=== PATIENT | male | born 1965 | race Caucasian/White ===

== ENCOUNTER 2016-05-09 09:37 | Emergency (ER) | payer BC, OTHER ==
[2016-05-09 09:50] VITALS: TEMP 97.8
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
--- NOTE | 2016-05-09 11:26 | XR ---
EXAMINATION TYPE: XR shoulder complete RT DATE OF EXAM: 05/09/2016 11:13 AM CLINICAL HISTORY: pain COMPARISON: NONE TECHNIQUE: Frontal and lateral images of the right humerus are obtained. FINDINGS: There is no acute fracture/dislocation evident. The joint spaces appear within normal limi ts. The overlying soft tissue appears unremarkable. IMPRESSION: There is no acute fracture or dislocation.ICD 10 NO FRACTURE, INITIAL EVALUATION
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
[2016-05-09 12:28] VITALS: BP 134/77; PULSE 66; RESP 18
== END 2016-05-09 12:28 | disposition home or self-care (01) ==
LOC: EC 09:37
DX: S06.0X0A Concussion without loss of consciousness, initial encounter (principal); S16.1XXA Strain of muscle, fascia and tendon at neck level, initial encounter; V43.52XA Car driver injured in collision with other type car in traffic accident, initial encounter
CPT/HCPCS: 71020; 73030; 72125; 70450; 99285; L0120

== ENCOUNTER → 2021-11-08 | Outpatient (CLI) | payer OTHER ==
--- NOTE | 2021-11-08 19:53 | MR ---
EXAMINATION TYPE: MR knee RT wo con DATE OF EXAM: 11/08/2021 COMPARISON: None. 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 TECHNIQUE: Multiplanar, multisequence imaging of the right knee is performed without IV contrast. FINDINGS: MEDIAL MENISCUS: Marked increased signal throughout entire medial meniscus does not extend to articul ar surface. LATERAL MENISCUS: Anterior and posterior horns are intact without tear. CRUCIATE LIGAMENTS: The anterior and posterior cruciate ligaments are intact and unremarkable. COLLATERAL LIGAMENTS: The medial collateral ligament and lateral collateral ligament complex are inta ct and unremarkable. EXTENSOR MECHANISM: Visualized quadriceps and patellar tendons are intact. EFFUSION: Small size suprapatellar joint effusion. POPLITEAL CYST: No popliteal/miller cyst. TRICOMPARTMENT SPACES: Mild to moderate tricompartment joint space loss and mild spurring. CARTILAGE: Chondromalacia patella with thinning of articular cartilage along the posterior patellar p ole. Some fissuring cartilaginous loss medial tibiofemoral compartment. BONE MARROW SIGNAL: Rounded 1.9 cm lesion of low T1 and increased T2 signal involving the distal medi al femoral condyle. OTHER: No additional significant abnormality is appreciated. IMPRESSION: 1. Intrasubstance tear throughout the medial meniscus. No full-thickness meniscal tear. 2. Mild to moderate tricompartment degenerative changes as detailed above. 3. Small suprapatellar joint effusion. 4. There is 1.9 cm round osseous lesion distal medial femoral condyle. Etiology uncertain. Nonaggress oswaldo etiology strongly favored. Correlation with plain films advised.
== END | disposition home or self-care (01) ==
LOC: RADMRIMAIN 16:21
DX: M23.303 Other meniscus derangements, unspecified medial meniscus, right knee (principal); M25.461 Effusion, right knee